=== PATIENT | male | born 1985 | race Caucasian/White ===

== ENCOUNTER 2022-03-28 08:52 | Emergency (ER) | payer OTHER ==
[~2022-03-28] VITALS: Ht 188 cm; Wt 90.9 kg
[2022-03-28] MEDS ORDERED: LIDOCAINE 1% 10 ML VIAL ONE (09:42)
[2022-03-28] MEDS ORDERED: PERTUSS(ACELL),DIPH,TET VAC/PF 0.5 ML SYRINGE IM. ONE (09:45)
[2022-03-28] MEDS ORDERED: LIDOCAINE 1% 20 ML VIAL SQ ONE (09:45)
[2022-03-28] MEDS ORDERED: CeFAZolin 1 GM/DEXTROSE 50 ML IV ONE (10:00)
[2022-03-28 10:30] VITALS: BP 120/71
[2022-03-28] MEDS ORDERED: CEPH-558 PO (11:02)
[2022-03-28] MEDS ORDERED: SULF-261 PO (11:03)
== END 2022-03-28 11:55 | disposition home or self-care (01) ==
LOC: EMS 08:52
DX: L03.114 Cellulitis of left upper limb (principal)
CPT/HCPCS: 64450; 73120; 90471; 90715; 96365; 96366; 96372; 99284; J0690; J3490

== ENCOUNTER 2023-12-28 18:13 | Emergency (ER) | payer OTHER ==
[~2023-12-28] VITALS: Ht 185.4 cm; Wt 90.9 kg
[~2023-12-28 18:13] MED LIST: CEPH-558 PO; COLC0.6T73 PO; IBUP-1554 PO; SULF-261 PO
[2023-12-28 18:40] VITALS: BP 119/79; PULSE 84; RESP 18; TEMP 98.2
[2023-12-28] MEDS ORDERED: MUPI1OIN5 TP (20:05)
[2023-12-28] MEDS ORDERED: VALA500T34 PO (20:05)
[2023-12-28] MEDS: ValACYclovir HCL 500 MG TABLET PO ONE (20:27)
[2023-12-28] MEDS: MUPIROCIN CALCIUM 2% 15 GM CREAM TP ONE (20:27)
== END 2023-12-28 20:29 | disposition home or self-care (01) ==
LOC: EMS 18:13
DX: L01.00 Impetigo, unspecified (principal); F17.210 Nicotine dependence, cigarettes, uncomplicated
CPT/HCPCS: 99283

== ENCOUNTER 2024-11-21 00:42 | Emergency (ER) | payer OTHER ==
[~2024-11-21] VITALS: Ht 188 cm; Wt 95.5 kg
[~2024-11-21 00:42] MED LIST changes: +COLC-3 PO; -COLC0.6T73 PO; +MUPI1OIN5 TP; +VALA500T34 PO
[2024-11-21 00:51] VITALS: TEMP 97.6
[2024-11-21 04:13] VITALS: BP 130/72; PULSE 100; RESP 18; O2SAT 97
[2024-11-21] MEDS: LIDOCAINE 1% 10 ML VIAL SQ ONE (05:30)
[2024-11-21] MEDS ORDERED: BACITRACIN 0.9 GM PACKET OINTMENT TP ONE (06:00)
== END 2024-11-21 06:26 | disposition home or self-care (01) ==
LOC: EMS 00:42
DX: S61.211A Laceration without foreign body of left index finger without damage to nail, initial encounter (principal); S61.215A Laceration without foreign body of left ring finger without damage to nail, initial encounter; Z79.899 Other long term (current) drug therapy; W26.0XXA Contact with knife, initial encounter; Y93.89 Activity, other specified; Y92.89 Other specified places as the place of occurrence of the external cause; Y99.8 Other external cause status
CPT/HCPCS: 99282; 12002; J3490